=== PATIENT | male | born 1960 | race Caucasian/White ===

== ENCOUNTER 2016-11-29 18:44 | Emergency (ER) | payer OTHER ==
[2016-11-29] MEDS ORDERED: Sodium Chloride 0.9% 10 ML Syringe FLUSH PRN (19:16)
[2016-11-29] MEDS ORDERED: Sodium Chloride 0.9% 1,000 ML IV ONE (19:17)
[2016-11-29 19:40] LABS: CHLORIDE,CL 105 mmol/L (98-107); SODIUM,NA 142 mmol/L (136-145)
[2016-11-29 20:42] VITALS: BP 129/72
--- NOTE | 2016-11-29 20:59 | EDM.PDOC ---
ED HPI GENERAL MEDICAL PROBLEM - General Chief Complaint: General Stated Complaint: passed out and hit head" Time Seen by Provider: 11/29/16 19:15 Source of Information: Reports: Patient, Family History Limitations: Reports: No Limitations - History of Present Illness INITIAL COMMENTS - FREE TEXT/NARRATIVE: Patient brought to ER by family after he was found lying on floor of bedroom after apparently briefly passing out. Patient said that today was a usual day for him and that he did not feel ill most of day. He does admit to a runny nose the last two days but otherwise reports no health changes. Patient came home from work and had been playing with grandchildren. He suddenly felt a bit nauseated and decided to go lay down in bed for a few minutes when he apparently passed out. He did hit the side of his tenriism on a toolbox when he went down. He denies other injuries. Complains that he "sees spots" at times since the incident. Nausea resolved. He was diaphoretic at time of incident and immediately afterwards. Family member who found him did not see obvious seizure movements but did say that patient "twitched" a few times before appearing to wake up. No post-ictal behavior described by family. Normal work day. Worked inside and had AC. No similar prior episodes. No med/supplements. Family history: father had MT in 70s. Denies any significant past medical history. Headache Pain Score (Numeric/FACES): 4 - Related Data Allergies Allergy/AdvReac Type Severity Reaction Status Date / Time No Known Allergies Allergy Verified 11/29/16 18:45 Home Meds: Home Meds . [No Known Home Meds] 11/29/16 [History] Past Medical History - Past Health History Medical/Surgical History: Denies Medical/Surgical History Social & Family History - Tobacco Use Smoking Status *Q: Former Smoker (quit 1979) - Alcohol Use Alcohol Use History: Yes Alcohol Use in Last Twelve Months: Yes Alcohol Use Frequency: Rarely - Recreational Drug Use Recreational Drug Use: Yes Drug Use in Last 12 Months: Yes Recreational Drug Type: Reports: Marijuana/Hashish Recreational Drug Use Frequency: Monthly ED ROS GENERAL - Review of Systems Review Of Systems: See Below Constitutional: Reports: Diaphoresis. Denies: Fever, Chills, Malaise, Weakness , Fatigue HEENT: Reports: Other (contusion left tenriism. "sees spots" in vision at times. ) . Denies: Ear Pain, Eye Pain, Nose Pain, Rhinitis, Vertigo Respiratory: Reports: No Symptoms. Denies: Shortness of Breath, Cough Cardiovascular: Reports: Syncope. Denies: Chest Pain, Blood Pressure Problem, Dyspnea on Exertion, Edema, Lightheadedness, Orthopnea, Palpitations GI/Abdominal: Reports: Nausea. Denies: Abdominal Pain, Constipation, Diarrhea, Distension, Vomiting : Reports: No Symptoms Musculoskeletal: Reports: No Symptoms Skin: Reports: Other (abrasion left tenriism) Psychiatric: Reports: No Symptoms Hematologic/Lymphatic: Reports: No Symptoms Immunologic: Reports: No Symptoms ED EXAM, GENERAL - Physical Exam Exam: See Below Exam Limited By: No Limitations General Appearance: Alert, WD/WN, No Apparent Distress Eye Exam: Bilateral Eye: EOMI, Normal Inspection, PERRL Ears: Normal External Exam, Normal Canal, Hearing Grossly Normal, Normal TMs Nose: Normal Inspection, Normal Mucosa, No Blood Throat/Mouth: Normal Inspection, Normal Lips, Normal Voice, No Airway Compromise Head: Other (abrasion left tenriism. No bruising or swelling. ) Respiratory/Chest: No Respiratory Distress, Lungs Clear, Normal Breath Sounds, No Accessory Muscle Use, Chest Non-Tender Cardiovascular: Normal Peripheral Pulses, Regular Rate, Rhythm, No Edema, No Murmur Peripheral Pulses: 2+: Radial (L), Radial (R) GI/Abdominal: Normal Bowel Sounds, Soft, Non-Tender, No Distention (Male) Exam: Deferred Rectal (Males) Exam: Deferred Back Exam: Normal Inspection, Full Range of Motion. No: CVA Tenderness (L), CVA Tenderness (R), Paraspinal Tenderness, Vertebral Tenderness Extremities: Normal Inspection, Normal Range of Motion, Non-Tender, No Pedal Edema, Normal Capillary Refill Neurological: Alert, Oriented, CN II-XII Intact, Normal Cognition, Normal Gait, Normal Reflexes, No Motor/Sensory Deficits Psychiatric: Normal Affect, Normal Mood Skin Exam: Warm, Dry, Normal Color EKG INTERPRETATION EKG Date: 11/29/16 Time: 18:56 Rhythm: NSR Rate (beats/min): 63 [place]: normal P-wave: present QRS: normal ST-T: other (No acute elevation or depression noted.) QT: normal Comparison: NA - no prior EKG Course - Vital Signs Last Recorded V/S: Last Vital Signs Temp 36.6 C 11/29/16 19:41 Pulse 74 11/29/16 20:25 Resp 18 11/29/16 20:25 BP 129/72 11/29/16 20:25 Pulse Ox 96 11/29/16 20:25 Orthostatic Blood Pressure [ 134/78 Standing] Orthostatic Blood Pressure [ 136/76 Sitting] Orthostatic Blood Pressure [ 128/68 Supine] - Orders/Labs/Meds Orders: Active Orders 24 hr Category Date Time Status EKG Documentation Completion [RC] ASDIRECTED Care 11/29/16 19:16 Active Head wo Cont [CT] Stat Exams 11/29/16 19:17 Taken Sodium Chloride 0.9% [Saline Flush] Med 11/29/16 19:16 Active 10 ml FLUSH ASDIRECTED PRN Saline Lock Insert [OM.PC] Stat Oth 11/29/16 19:16 Ordered Medication Orders Sodium Chloride (Saline Flush) 10 ml FLUSH ASDIRECTED PRN PRN Reason: Keep Vein Open Labs: Laboratory Tests 11/29/16 11/29/16 11/29/16 Range/Units 18:58 19:15 19:15 WBC 11.8 H (4.0-10.2) K/uL RBC 4.86 (4.33-5.41) M/uL Hgb 15.4 (13.1-16.8) g/dL Hct 46.0 (39.0-49.0) % MCV 94.7 (84.0-98.0) fL MCH 31.7 (28.2-33.3) pg MCHC 33.5 (31.7-36.0) g/dL RDW 12.8 (11.2-14.1) % Plt Count 177 (150-350) K/uL Neut % (Auto) 72.4 (45.0-80.0) % Lymph % (Auto) 20.0 (10.0-50.0) % [place] % (Auto) 6.1 (2.0-14.0) % Eos % (Auto) 0.8 (0.0-5.0) % Baso % (Auto) 0.7 (0.0-2.0) % Neut # (Auto) 8.55 H (1.40-7.00) K/uL Lymph # (Auto) 2.36 (0.50-3.50) K/uL [place] # (Auto) 0.72 (0.00-1.00) K/uL Eos # (Auto) 0.09 (0.00-0.50) K/uL Baso # (Auto) 0.08 (0.00-0.20) K/uL D-Dimer, Quantitative < 100 (0-400) ng/mL Sodium (136-145) mmol/L Potassium (3.5-5.1) mmol/L Chloride (98-107) mmol/L Carbon Dioxide (21.0-32.0) mmol/L BUN (7-18) mg/dL Creatinine (0.51-1.17) mg/dL Est Cr Clr Drug Dosing mL/min Estimated GFR (MDRD) mL/min Glucose (74-106) mg/dL POC Glucose 121 H (65-110) mg/dl Calcium (8.5-10.1) mg/dL Total Bilirubin (0.2-1.0) mg/dL AST (15-37) U/L ALT (12-78) U/L Alkaline Phosphatase (46-116) IU/L Troponin I (0.000-0.056) ng/mL Total Protein (6.4-8.2) g/dL Albumin (3.4-5.0) g/dL Specimen Type Urine Color Urine Appearance Urine pH (5.0-9.0) Ur Specific [place] (1.005-1.030) Urine Protein (NEGATIVE) mg/dL Urine Glucose (UA) (NEGATIVE) mg/dL Urine Ketones (NEGATIVE) mg/dL Urine Occult Blood (NEGATIVE) Urine Nitrite (NEGATIVE) Urine Bilirubin (NEGATIVE) Urine Urobilinogen (0.2-1.0) E.U./dL Ur Leukocyte Esterase (NEGATIVE) Urine RBC /HPF Urine WBC /HPF Urine Bacteria (NONE TO FEW) /HPF 11/29/16 11/29/16 Range/Units 19:15 19:30 WBC (4.0-10.2) K/uL RBC (4.33-5.41) M/uL Hgb (13.1-16.8) g/dL Hct (39.0-49.0) % MCV (84.0-98.0) fL MCH (28.2-33.3) pg MCHC (31.7-36.0) g/dL RDW (11.2-14.1) % Plt Count (150-350) K/uL Neut % (Auto) (45.0-80.0) % Lymph % (Auto) (10.0-50.0) % [place] % (Auto) (2.0-14.0) % Eos % (Auto) (0.0-5.0) % Baso % (Auto) (0.0-2.0) % Neut # (Auto) (1.40-7.00) K/uL Lymph # (Auto) (0.50-3.50) K/uL [place] # (Auto) (0.00-1.00) K/uL Eos # (Auto) (0.00-0.50) K/uL Baso # (Auto) (0.00-0.20) K/uL D-Dimer, Quantitative (0-400) ng/mL Sodium 142 (136-145) mmol/L Potassium 3.6 (3.5-5.1) mmol/L Chloride 105 (98-107) mmol/L Carbon Dioxide 26.5 (21.0-32.0) mmol/L BUN 15 (7-18) mg/dL Creatinine 0.69 (0.51-1.17) mg/dL Est Cr Clr Drug Dosing 124.90 mL/min Estimated GFR (MDRD) > 60 mL/min Glucose 122 H (74-106) mg/dL POC Glucose (65-110) mg/dl Calcium 8.8 (8.5-10.1) mg/dL Total Bilirubin 0.3 (0.2-1.0) mg/dL AST 26 (15-37) U/L ALT 33 (12-78) U/L Alkaline Phosphatase 51 (46-116) IU/L Troponin I 0.000 (0.000-0.056) ng/mL Total Protein 7.4 (6.4-8.2) g/dL Albumin 4.1 (3.4-5.0) g/dL Specimen Type Urin[place]ad Urine Color Yellow Urine Appearance Clear Urine pH 5.5 (5.0-9.0) Ur Specific [place] >= 1.030 (1.005-1.030) Urine Protein Negative (NEGATIVE) mg/dL Urine Glucose (UA) Negative (NEGATIVE) mg/dL Urine Ketones Negative (NEGATIVE) mg/dL Urine Occult Blood Negative (NEGATIVE) Urine Nitrite Negative (NEGATIVE) Urine Bilirubin Negative (NEGATIVE) Urine Urobilinogen 0.2 (0.2-1.0) E.U./dL Ur Leukocyte Esterase Negative (NEGATIVE) Urine RBC 0-5 /HPF Urine WBC 0-5 /HPF Urine Bacteria Rare (NONE TO FEW) /HPF Meds: Medications Generic Name Dose Route Start Last Admin Trade Name Freq PRN Reason Stop Dose Admin Sodium Chloride 10 ml 11/29/16 19:16 Saline Flush FLUSH ASDIRECTED PRN Keep Vein Open Discontinued Medications Generic Name Dose Route Start Last Admin Trade Name Freq PRN Reason Stop Dose Admin Sodium Chloride 1,000 mls @ 999 mls/hr 11/29/16 19:17 11/29/16 19:21 Normal Saline IV 11/29/16 20:17 999 mls/hr .BOLUS ONE Administration Ketorolac Tromethamine 10 mg 11/29/16 21:02 Toradol PO 11/29/16 21:03 ONETIME ONE - Radiology Interpretation Free Text/Narrative:: CT of head negative per radiology. - Re-Assessments/Exams Free Text/Narrative Re-Assessment/Exam: Glucose in 120s. WBC mildly elevated. CBC/Chem/UA/Troponin otherwise unremarkable. Head CT normal per radiology. Patient felt much improved after receiving one liter of NS. Suspect mild dehydration may have contributed to episode as specific gravity of UA was increased. No longer "seeing spots". Normal orthostatic measurements. Discussed keeping him on observation for cardiac monitoring and serial troponin checks. Patient refused. At this time this does not appear to be heart related however this cannot be fully ruled out at this point. Differential includes early viral syndrome/dehydration. Uncertain at this point as to specific cause. Extensive precautions discussed with patient. He ad family are to continue to monitor for changes and new symptoms and should follow up accordingly at ER as needed or at clinic. He is to return immediately to ER if he has any additional syncopal episodes tonight, or develops chest pain/SOB/Neuro changes. Departure - Departure Time of Disposition: 20:59 Disposition: Home, Self-Care 01 Condition: good Clinical Impression: Dehydration Episode of syncope Qualifiers: Syncope type: unspecified Qualified Code(s): R55 - Syncope and collapse Head contusion Qualifiers: Encounter type: initial encounter Contusion of head detail: scalp Qualified Code(s): S00.03XA - Contusion of scalp, initial encounter - Discharge Information Instructions: Syncope, [id number], Concussion, Adult, [id number] Referrals: PCP,Unknown [Primary Care Provider] - Forms: ED Department Discharge Additional Instructions: Take it easy tonight. Watch for any changes or new symptoms that may help decide what specifically caused you to pass out this evening. As we discussed, there are many reasons why people pass out. These include viral illnesses, seizures, as well as heart/blood pressure problems. If you have sudden worsening problems, return to the ER. Additional evaluation will be needed if you have further episodes of syncope. Stay well hydrated, drink good amounts of water. Also follow up if you have worsening symptoms suggestive of concussion. - My Orders Last 24 Hours: My Active Orders 11/29/16 19:16 EKG Documentation Completion [RC] ASDIRECTED Sodium Chloride 0.9% [Saline Flush] 10 ml FLUSH ASDIRECTED PRN Saline Lock Insert [OM.PC] Stat 11/29/16 19:17 Head wo Cont [CT] Stat - Assessment/Plan Last 24 Hours: My Active Orders 11/29/16 19:16 EKG Documentation Completion [RC] ASDIRECTED Sodium Chloride 0.9% [Saline Flush] 10 ml FLUSH ASDIRECTED PRN Saline Lock Insert [OM.PC] Stat 11/29/16 19:17 Head wo Cont [CT] Stat
[2016-11-29] MEDS ORDERED: Ketorolac 10 MG Tab PO ONE (21:02)
== END 2016-11-29 21:20 | disposition home or self-care (01) ==
LOC: LL.ED 18:44
DX: S00.03XA Contusion of scalp, initial encounter (principal); R55 Syncope and collapse; E86.0 Dehydration; Z87.891 Personal history of nicotine dependence; W22.09XA Striking against other stationary object, initial encounter
CPT/HCPCS: 36415; 70450; 80053; 81001; 82962; 84484; 85025; 85379; 93005; 96360; 99285; J7030

== ENCOUNTER 2022-07-10 09:03 | Emergency (ER) | payer MEDICAID ==
[2022-07-10 09:19] VITALS: BP 137/81; PULSE 68
[2022-07-10 09:59] LABS: ANION GAP 10.8 meq/L (7-15); CHLORIDE,CL 101 mmol/L (98-107); ESTIMATED GFR 99 mL/min (>=60); SODIUM,NA 139 mmol/L (136-145)
[2022-07-10 10:21] LABS: HEMOGLOBIN A1C 7.3 % (4.3-5.7)
== END 2022-07-10 10:55 | disposition home or self-care (01) ==
LOC: LL.ED 09:03
DX: E11.39 Type 2 diabetes mellitus with other diabetic ophthalmic complication (principal)
CPT/HCPCS: 36415; 80053; 83036; 85025; 99284

== ENCOUNTER 2022-07-12 13:40 | Emergency (ER) | payer MEDICAID ==
[2022-07-12] MEDS ORDERED: Sodium Chloride 0.9% 10 ML Syringe FLUSH PRN (13:58)
[2022-07-12 14:37] LABS: ANION GAP 11.5 meq/L (7-15)
[2022-07-12] MEDS ORDERED: Iopamidol 755 Mg/ML 100 ML Bottle IVPUSH STA (16:01)
[2022-07-12] MEDS: Aspirin 81 MG Tab.Chew PO ONE (16:57)
[2022-07-12 17:52] VITALS: BP 142/64; PULSE 62
== END 2022-07-12 17:10 ==
LOC: LL.ED 13:40
DX: I63.9 Cerebral infarction, unspecified (principal)
CPT/HCPCS: 36415; 70450; 70496; 70498; 71045; 80053; 84484; 85025; 93005; 99285; A9270-GY; Q9967

== ENCOUNTER 2023-08-20 10:06 | Emergency (ER) | payer MEDICAID ==
[2023-08-20] MEDS ORDERED: Sodium Chloride 0.9% 10 ML Syringe FLUSH PRN (10:17)
[2023-08-20 10:27] LABS: BASOPHILS ABSOLUTE AUTO 0.04 K/uL (0.00-0.20); BASOPHILS PERCENT AUTO 0.3 % (0.0-2.0); EOSINOPHILS ABSOLUTE AUTO 0.01 K/uL (0.00-0.50); EOSINOPHILS PERCENT AUTO 0.1 % (0.0-5.0); HEMATOCRIT 47.7 % (39.0-49.0); HEMOGLOBIN 15.9 g/dL (13.1-16.8); LYMPHOCYTES ABSOLUTE AUTO 0.44 K/uL (0.50-3.50); LYMPHOCYTES PERCENT AUTO 3.8 % (10.0-50.0); MEAN CORPUSCULAR HEMOGLOBIN 31.4 pg (28.2-33.3); MEAN CORPUSCULAR HGB CONC 33.3 g/dL (31.7-36.0); MEAN CORPUSCULAR VOLUME 94.1 fL (84.0-98.0); MONOCYTES ABSOLUTE AUTO 0.78 K/uL (0.00-1.00); MONOCYTES PERCENT AUTO 6.6 % (2.0-14.0); NEUTROPHILS ABSOLUTE AUTO 10.46 K/uL (1.40-7.00); NEUTROPHILS PERCENT AUTO 89.2 % (45.0-80.0); PLATELET COUNT,PLT 157 K/uL (150-350); RED BLOOD CELL COUNT 5.07 M/uL (4.33-5.41); RED CELL DISTRIBUTION WIDTH 12.5 % (11.2-14.1); WHITE BLOOD CELL COUNT,WBC 11.7 K/uL (4.0-10.2)
[2023-08-20] MEDS: Ketorolac 30 MG/ML SDV IVPUSH ONE (10:41)
[2023-08-20] MEDS: Ondansetron 4 MG/2 ML SDV IVPUSH ONE (10:41)
[2023-08-20] MEDS: Sodium Chloride 0.9% 1,000 ML IV ONE (10:41)
[2023-08-20 10:48] LABS: ANION GAP 11.5 meq/L (7-15); BILIRUBIN TOTAL 0.3 mg/dL (0.2-1.0); CALCIUM 8.8 mg/dL (8.5-10.1); CARBON DIOXIDE,CO2 23.5 mmol/L (21.0-32.0); CREATININE 1.06 mg/dL (0.51-1.17); EST CRCL DRUG DOSING (CG) 77.94 mL/min; ETHANOL BLOOD MEDICAL 0.002 g/dL (0.000-0.080); POTASSIUM,K 4.1 mmol/L (3.5-5.1); PROTEIN TOTAL,TP 7.5 g/dL (6.4-8.2)
[2023-08-20 11:22] LABS: APPEARANCE,URINE TURBID; BILIRUBIN,URINE NEGATIVE (NEGATIVE); COLOR,URINE YELLOW; GLUCOSE,URINE 250 mg/dL (NEGATIVE); KETONES,URINE TRACE mg/dL (NEGATIVE); LEUKOCYTE ESTERASE,URINE NEGATIVE (NEGATIVE); NITRITE,URINE NEGATIVE (NEGATIVE); OCCULT BLOOD,URINE TRACE-LYSED (NEGATIVE); PH,URINE 5.5 (5.0-9.0); PROTEIN,URINE 100 mg/dL (NEGATIVE); UROBILINOGEN,URINE 0.2 E.U./dL (0.2-1.0)
[2023-08-20 11:28] LABS: AMPHETAMINES SCREEN, URINE NEGATIVE (NEGATIVE); BARBITURATE SCREEN,URINE NEGATIVE (NEGATIVE); BENZODIAZEPINES SCREEN,URINE NEGATIVE (NEGATIVE); COCAINE METABOLITES,URINE NEGATIVE (NEGATIVE); EDDP,URINE SCREEN NEGATIVE (NEGATIVE); METHAMPHETAMINES SCREEN, URINE NEGATIVE (NEGATIVE); TCA SCREEN,URINE NEGATIVE (NEGATIVE); THC SCREEN,URINE 50 NG/ML POSITIVE (NEGATIVE)
[2023-08-20 11:31] LABS: BUPRENORPHINE SCREEN,URINE NEGATIVE (NEGATIVE); OXYCODONE SCREEN,URINE NEGATIVE (NEGATIVE)
[2023-08-20 11:32] LABS: BACTERIA,URINE NOT SEEN /HPF (NONE TO FEW); RBC,URINE 0-5 /HPF; WBC,URINE 0-5 /HPF
[2023-08-20] MEDS ORDERED: Acetaminophen 325 MG Tab PO ONE (12:40)
[2023-08-20 12:50] LABS: PRO B-TYPE NATRIUR PEPT,BNPPRO 197 pg/mL (0-125)
[2023-08-20 12:52] LABS: INFLUENZA A NAA NEGATIVE (NEGATIVE); INFLUENZA B NAA NEGATIVE (NEGATIVE); RESPIRATORY SYNCYTIAL VIR NAA NEGATIVE (NEGATIVE)
[2023-08-20 12:56] LABS: CORONAVIRUS COVID-19 NAA POSITIVE (NEGATIVE)
[2023-08-20] MEDS: Iopamidol 755 Mg/ML 100 ML Bottle IVPUSH ONE (13:04)
[2023-08-20] MEDS: Acetaminophen 500 MG Tab PO ONE (13:20)
[2023-08-20 16:49] VITALS: BP 142/81; PULSE 75
== END 2023-08-20 15:15 ==
LOC: LL.ED 10:06
DX: U07.1 COVID-19 (principal); R55 Syncope and collapse; R79.89 Other specified abnormal findings of blood chemistry; E78.00 Pure hypercholesterolemia, unspecified; E11.9 Type 2 diabetes mellitus without complications; Z79.84 Long term (current) use of oral hypoglycemic drugs; Z79.82 Long term (current) use of aspirin; Z79.899 Other long term (current) drug therapy
CPT/HCPCS: 0241U; 36415; 70450; 71045; 71275; 80053; 80305; 80307; 81001; 83605; 83880; 84484; 85025; 93005; 93010; 96361; 96374; 96375; 99284; 99285; A9270; J1885; J2405; J7030; Q9967

== ENCOUNTER 2024-10-10 16:53 | Emergency (ER) | payer MEDICAID ==
[2024-10-10 17:34] LABS: BASOPHILS ABSOLUTE AUTO 0.04 K/uL (0.00-0.20); BASOPHILS PERCENT AUTO 0.3 % (0.0-2.0); EOSINOPHILS ABSOLUTE AUTO 0.07 K/uL (0.00-0.50); EOSINOPHILS PERCENT AUTO 0.5 % (0.0-5.0); HEMATOCRIT 47.1 % (39.0-49.0); HEMOGLOBIN 15.9 g/dL (13.1-16.8); IMMATURE GRAN ABSOLUTE AUTO 0.03 10^3/uL (0.00-0.04); IMMATURE GRAN PERCENT AUTO 0.2 % (0.0-0.4); LYMPHOCYTES ABSOLUTE AUTO 3.74 K/uL (0.50-3.50); LYMPHOCYTES PERCENT AUTO 27.6 % (10.0-50.0); MEAN CORPUSCULAR HEMOGLOBIN 31.2 pg (28.2-33.3); MEAN CORPUSCULAR HGB CONC 33.8 g/dL (31.7-36.0); MEAN CORPUSCULAR VOLUME 92.4 fL (84.0-98.0); MONOCYTES ABSOLUTE AUTO 0.82 K/uL (0.00-1.00); MONOCYTES PERCENT AUTO 6.1 % (2.0-14.0); NEUTROPHILS ABSOLUTE AUTO 8.85 K/uL (1.40-7.00); NEUTROPHILS PERCENT AUTO 65.3 % (45.0-80.0); PLATELET COUNT,PLT 257 K/uL (150-350); RED CELL DISTRIBUTION WIDTH 11.5 % (11.2-14.1); WHITE BLOOD CELL COUNT,WBC 13.6 K/uL (4.0-10.2)
[2024-10-10 17:55] LABS: ALBUMIN 3.9 g/dL (3.4-5.0); ANION GAP 10.2 meq/L (7-15); BILIRUBIN TOTAL 0.6 mg/dL (0.2-1.0); CALCIUM 9.4 mg/dL (8.5-10.1); CARBON DIOXIDE,CO2 25.8 mmol/L (21.0-32.0); CREATININE 0.76 mg/dL (0.51-1.17); EST CRCL DRUG DOSING (CG) 107.34 mL/min; POTASSIUM,K 4.4 mmol/L (3.5-5.1); PROTEIN TOTAL,TP 7.7 g/dL (6.4-8.2)
[2024-10-10 18:07] LABS: PROTHROMBIN TIME 10.1 SEC (9.0-11.1); PTT,PARTIAL THROMBOPLSTIN TIME 24.1 SEC (23.8-34.4)
[2024-10-10 18:08] VITALS: PULSE 60
[2024-10-10] MEDS ORDERED: Naloxone 0.4 MG/ML SDV IVPUSH PRN (18:08)
[2024-10-10] MEDS: Ondansetron 4 MG/2 ML SDV IVPUSH ONE (18:21)
[2024-10-10] MEDS: fentaNYL 50 MCG/ML SDV IVPUSH ONE (18:22)
[2024-10-10 19:07] VITALS: BP 128/85
== END 2024-10-10 18:55 ==
LOC: LL.ED 16:53
DX: S06.5X0A Traumatic subdural hemorrhage without loss of consciousness, initial encounter (principal); I10 Essential (primary) hypertension; E78.00 Pure hypercholesterolemia, unspecified; E11.9 Type 2 diabetes mellitus without complications; Z79.82 Long term (current) use of aspirin; Z87.891 Personal history of nicotine dependence; W22.8XXA Striking against or struck by other objects, initial encounter
CPT/HCPCS: 36415; 70450; 80053; 85025; 85610; 85730; 96374; 96375; 99285; J2405; J3010

== ENCOUNTER 2024-10-17 18:40 | Emergency (ER) | payer MEDICAID ==
[2024-10-17] MEDS ORDERED: Sodium Chloride 0.9% 10 ML Syringe FLUSH PRN (19:15)
[2024-10-17 19:23] LABS: BASOPHILS ABSOLUTE AUTO 0.05 K/uL (0.00-0.20); BASOPHILS PERCENT AUTO 0.5 % (0.0-2.0); EOSINOPHILS ABSOLUTE AUTO 0.11 K/uL (0.00-0.50); HEMATOCRIT 47.5 % (39.0-49.0); HEMOGLOBIN 15.7 g/dL (13.1-16.8); IMMATURE GRAN ABSOLUTE AUTO 0.03 10^3/uL (0.00-0.04); IMMATURE GRAN PERCENT AUTO 0.3 % (0.0-0.4); LYMPHOCYTES ABSOLUTE AUTO 3.99 K/uL (0.50-3.50); LYMPHOCYTES PERCENT AUTO 37.4 % (10.0-50.0); MEAN CORPUSCULAR HEMOGLOBIN 30.5 pg (28.2-33.3); MEAN CORPUSCULAR HGB CONC 33.1 g/dL (31.7-36.0); MEAN CORPUSCULAR VOLUME 92.4 fL (84.0-98.0); MONOCYTES ABSOLUTE AUTO 0.62 K/uL (0.00-1.00); MONOCYTES PERCENT AUTO 5.8 % (2.0-14.0); NEUTROPHILS ABSOLUTE AUTO 5.86 K/uL (1.40-7.00); PLATELET COUNT,PLT 236 K/uL (150-350); RED BLOOD CELL COUNT 5.14 M/uL (4.33-5.41); RED CELL DISTRIBUTION WIDTH 11.7 % (11.2-14.1); WHITE BLOOD CELL COUNT,WBC 10.7 K/uL (4.0-10.2)
[2024-10-17 19:26] LABS: PROTHROMBIN TIME 10.4 SEC (9.0-11.1)
[2024-10-17 19:37] LABS: LACTIC ACID 3.4 mmol/L (0.4-2.0)
[2024-10-17 19:38] LABS: ALANINE AMINOTRANSFERASE,ALT 16 U/L (12-78); ALBUMIN 3.6 g/dL (3.4-5.0); ALKALINE PHOSPHATASE 62 IU/L (46-116); ASPARTATE AMNIOTRANSFERASE,AST 8 U/L (15-37); BILIRUBIN TOTAL 0.4 mg/dL (0.2-1.0); BLOOD UREA NITROGEN,BUN 15 mg/dL (7-18); CALCIUM 9.4 mg/dL (8.5-10.1); CARBON DIOXIDE,CO2 26.9 mmol/L (21.0-32.0); CHLORIDE,CL 99 mmol/L (98-107); CREATININE 0.86 mg/dL (0.51-1.17); GLUCOSE RANDOM 393 mg/dL (70-99); MAGNESIUM 1.9 mg/dL (1.8-2.4); POTASSIUM,K 4.1 mmol/L (3.5-5.1); PRO B-TYPE NATRIUR PEPT,BNPPRO 38 pg/mL (0-125); PROTEIN TOTAL,TP 7.7 g/dL (6.4-8.2); SODIUM,NA 134 mmol/L (136-145)
[2024-10-17 19:39] LABS: ANION GAP 12.2 meq/L (7-15); ESTIMATED GFR 98 mL/min (>=60)
[2024-10-17] MEDS: levETIRAcetam 500 MG/5 ML SDV IVPUSH ONE ×2 (20:52→20:53)
[2024-10-17 20:55] VITALS: BP 149/93; PULSE 75
== END 2024-10-17 21:25 ==
LOC: LL.ED 18:40
DX: I62.00 Nontraumatic subdural hemorrhage, unspecified (principal); E87.1 Hypo-osmolality and hyponatremia; R56.9 Unspecified convulsions; I10 Essential (primary) hypertension; E78.00 Pure hypercholesterolemia, unspecified; E11.9 Type 2 diabetes mellitus without complications; Z79.84 Long term (current) use of oral hypoglycemic drugs; Z79.899 Other long term (current) drug therapy; Z79.82 Long term (current) use of aspirin; Z86.73 Personal history of transient ischemic attack (TIA), and cerebral infarction without residual deficits
CPT/HCPCS: 36415; 70450; 71045; 80053; 83605; 83735; 83880; 85025; 85610; 93005; 96374; 99285-25; J1953

== ENCOUNTER 2024-12-14 11:16 | Emergency (ER) | payer MEDICAID ==
[2024-12-14 11:47] LABS: BASOPHILS ABSOLUTE AUTO 0.03 K/uL (0.00-0.20); BASOPHILS PERCENT AUTO 0.3 % (0.0-2.0); EOSINOPHILS ABSOLUTE AUTO 0.08 K/uL (0.00-0.50); EOSINOPHILS PERCENT AUTO 0.7 % (0.0-5.0); HEMATOCRIT 49.3 % (39.0-49.0); HEMOGLOBIN 16.1 g/dL (13.1-16.8); IMMATURE GRAN ABSOLUTE AUTO 0.05 10^3/uL (0.00-0.04); IMMATURE GRAN PERCENT AUTO 0.4 % (0.0-0.4); LYMPHOCYTES ABSOLUTE AUTO 2.76 K/uL (0.50-3.50); LYMPHOCYTES PERCENT AUTO 23.4 % (10.0-50.0); MEAN CORPUSCULAR HEMOGLOBIN 31.8 pg (28.2-33.3); MEAN CORPUSCULAR HGB CONC 32.7 g/dL (31.7-36.0); MEAN CORPUSCULAR VOLUME 97.2 fL (84.0-98.0); MONOCYTES ABSOLUTE AUTO 0.79 K/uL (0.00-1.00); MONOCYTES PERCENT AUTO 6.7 % (2.0-14.0); NEUTROPHILS ABSOLUTE AUTO 8.07 K/uL (1.40-7.00); NEUTROPHILS PERCENT AUTO 68.5 % (45.0-80.0); PLATELET COUNT,PLT 152 K/uL (150-350); RED BLOOD CELL COUNT 5.07 M/uL (4.33-5.41); RED CELL DISTRIBUTION WIDTH 12.7 % (11.2-14.1); WHITE BLOOD CELL COUNT,WBC 11.8 K/uL (4.0-10.2)
[2024-12-14 11:56] VITALS: PULSE 81
[2024-12-14 12:01] LABS: ALANINE AMINOTRANSFERASE,ALT 29 U/L (12-78); ALBUMIN 3.6 g/dL (3.4-5.0); ALKALINE PHOSPHATASE 47 IU/L (46-116); ANION GAP 7.3 meq/L (7-15); ASPARTATE AMNIOTRANSFERASE,AST 9 U/L (15-37); BILIRUBIN TOTAL 0.3 mg/dL (0.2-1.0); BLOOD UREA NITROGEN,BUN 17 mg/dL (7-18); CALCIUM 8.9 mg/dL (8.5-10.1); CARBON DIOXIDE,CO2 28.7 mmol/L (21.0-32.0); CHLORIDE,CL 103 mmol/L (98-107); CREATININE 0.99 mg/dL (0.51-1.17); ESTIMATED GFR 86 mL/min (>=60); GLUCOSE RANDOM 253 mg/dL (70-99); POTASSIUM,K 4.6 mmol/L (3.5-5.1); PROTEIN TOTAL,TP 6.9 g/dL (6.4-8.2); SODIUM,NA 139 mmol/L (136-145)
[2024-12-14] MEDS: Take Home: Amoxicillin/Clavulanate K 875-125 MG Tab, 6 Tab Pack PO ONE (13:15)
[2024-12-14 13:31] VITALS: BP 145/85
== END 2024-12-14 13:17 | disposition home or self-care (01) ==
LOC: LL.ED 11:16
DX: L03.811 Cellulitis of head [any part, except face] (principal); I10 Essential (primary) hypertension; E78.00 Pure hypercholesterolemia, unspecified; E11.9 Type 2 diabetes mellitus without complications
CPT/HCPCS: 36415; 70450; 80053; 85025; 99284; A9270